=== PATIENT | male | born 1965 | race Hispanic/Latino ===

== ENCOUNTER 2018-05-25 14:20 | Emergency (ER) | payer MEDICAID, OTHER ==
[2018-05-25 14:49] VITALS: BP 116/74; PULSE 70; RESP 18; TEMP 98.6; O2SAT 96
--- NOTE | 2018-05-25 15:02 | C.PDOC ---
History Of Present Illness CONCERN FOR PERSIST L BUTTOCK ABSCESS X 2 WEEKS. PS HAS BEEN SELF SQUEEZING AREA , LAST TIME 4 DAYS AGO. STILL W PERSIST REDNESS AND SWELLING BUT MUCH IMPROVED OVERALL. NO DC, FEVER, HO PRIOR SIM LOCATION LESION EXAM NAD SKIN +RESOLVING ABSCESS L BUTTOCK W LOCAL ERYTHEMA, INDURATION. NO FOCAL FLUCTUANCE, DC. +SCAB REMAINDER NEG MDM CELLULITIS, RESIDUAL ABSCESS W NO PALP FOCAL FLUCTUANCE. ABX Time Seen by Provider: 05/25/18 14:43 History Per: Patient History/Exam Limitations: no limitations Onset/Duration Of Symptoms: Days Current Symptoms Are (Timing): Still Present Severity: Moderate Past Medical History Reviewed: Historical Data, Nursing Documentation, Vital Signs Vital Signs: Last Vital Signs Temp 98.6 F 05/25/18 14:48 Pulse 70 05/25/18 14:48 Resp 18 05/25/18 14:48 BP 116/74 05/25/18 14:48 Pulse Ox 96 05/25/18 15:02 - Medical History PMH: Anxiety Denies: Diabetes, Hepatitis, HIV, HTN, Seizures, Sexually Transmitted Disease Other Surgeries: Hx of surgeries Family History: States: No Known Family Hx - Social History Hx Tobacco Use: No Hx Alcohol Use: No Hx Substance Use: No - Immunization History Hx Tetanus Toxoid Vaccination: Yes Hx Influenza Vaccination: Yes Hx Pneumococcal Vaccination: Yes Review Of Systems Except As Marked, All Systems Reviewed And Found Negative. Constitutional: Negative for: Fever, Chills Skin: Positive for: Other (left buttock abscess) Physical Exam - Physical Exam Appears: No Acute Distress Skin: Normal Color, Warm, Dry, Other (+ resolving abscess to left buttock with local erythema, induration, no focal fluctuance, discharge, + scab) Head: Atraumatic, Normacephalic Eye(s): bilateral: Normal Inspection Respiratory: Other (NARD) Neurological/Psych: Oriented x3, Normal Speech ED Course And Treatment O2 Sat by Pulse Oximetry: 96 (RA) Pulse Ox Interpretation: Normal Medical Decision Making Medical Decision Making: CELLULITIS, RESIDUAL ABSCESS W NO PALP FOCAL FLUCTUANCE. ABX Disposition Counseled Patient/Family Regarding: Diagnosis, Need For Followup, Rx Given - Disposition Referrals: [facility] [Outside] [facility] [Outside] Disposition: HOME/ ROUTINE Disposition Time: 15:01 Condition: IMPROVED Additional Instructions: AVOID SQUEEZING AREA OR FURTHER MANIPULATION. COMPLETE ANTIBIOTICS PRESCRIBED. FOLLOW UP CLINIC. READ INSTRUCTIONS WITH DISCHARGE PAPERS. Prescriptions: Cephalexin [cephalexin] 500 mg PO BID #14 cap Sulfamethoxazole/Trimethoprim [Bactrim DS 800 mg-160 mg] 1 tab PO BID #14 tab Instructions: Cellulitis (Skin Infection), Adult (DC) Forms: [facility] (French) - Clinical Impression Clinical Impression: Cellulitis and abscess of buttock - Scribe Statement The provider has reviewed the documentation as recorded by the Javy Dove Provider Attestation: All medical record entries made by the Javy were at my direction and personally dictated by me. I have reviewed the chart and agree that the record accurately reflects my personal performance of the history, physical exam, medical decision making, and the department course for this patient. I have also personally directed, reviewed, and agree with the discharge instructions and disposition.
== END 2018-05-25 15:10 | disposition home or self-care (01) ==
LOC: C.ER 14:20
DX: L03.317 Cellulitis of buttock (principal); L02.31 Cutaneous abscess of buttock

== ENCOUNTER 2018-07-28 12:19 | Emergency (ER) | payer OTHER ==
[2018-07-28 12:42] VITALS: BMI 24.0
[2018-07-28 12:48] VITALS: BP 132/84; PULSE 77; RESP 18; TEMP 99.8; O2SAT 99
--- NOTE | 2018-07-28 13:27 | C.PDOC ---
History Of Present Illness 53 y/o male,w/PMhx of anxiety and drug abuse, presents to the ER complaining of right arm pain which has been present for the past 1 week. Patient states that he tripped and fell hurting his right arm 1 week ago. Denies LOC. Patient reports that the pain has not decreased since the fall. He describes the pain as dull and notes that the pain is located mainly in the right forearm and elbow. He notes that the pain is worse with movement with intermittent paresthesias to 4th and 5th digits, along with medial palm. He has not taken any medications for the pain. Denies having fevers, chills, dizziness, weakness, numbness, shoulder pain, CP, SOB, visual changes, and headache. Chief Complaint (Nursing): Upper Extremity Problem/Injury History Per: Patient History/Exam Limitations: no limitations Onset/Duration Of Symptoms: Days Current Symptoms Are (Timing): Still Present Severity: Moderate Past Medical History Reviewed: Historical Data, Nursing Documentation, Vital Signs Vital Signs: Last Vital Signs Temp 99.8 F H 07/28/18 12:39 Pulse 77 07/28/18 12:39 Resp 18 07/28/18 12:39 BP 132/84 07/28/18 12:39 Pulse Ox 99 07/28/18 12:39 - Medical History PMH: Anxiety, Pneumonia Denies: Diabetes, Hepatitis, HIV, HTN, Seizures, Sexually Transmitted Disease Other Surgeries: Hx of surgeries Family History: States: No Known Family Hx - Social History Hx Tobacco Use: No Hx Alcohol Use: Yes Hx Substance Use: Yes - Immunization History Hx Tetanus Toxoid Vaccination: No Hx Influenza Vaccination: No Hx Pneumococcal Vaccination: No Review Of Systems Except As Marked, All Systems Reviewed And Found Negative. Constitutional: Negative for: Fever, Chills Eyes: Negative for: Vision Change Cardiovascular: Negative for: Chest Pain Respiratory: Negative for: Shortness of Breath Musculoskeletal: Positive for: Arm Pain (right arm pain). Negative for: Shoulder Pain Neurological: Negative for: Weakness, Numbness, Headache Physical Exam - Physical Exam Appears: Well, Non-toxic, No Acute Distress Skin: Normal Color, Warm, Dry Head: Normacephalic, Abrasion (small to left jaw line, no tenderness or warmth) Eye(s): bilateral: Normal Inspection, PERRL, EOMI Ear(s): Bilateral: Normal Nose: Normal Oral Mucosa: Moist Neck: Normal, Normal ROM, No Decreased ROM, No Paracervical Tenderness, Supple Chest: Symmetrical Cardiovascular: Rhythm Regular Respiratory: Normal Breath Sounds Back: Normal Inspection, No CVA Tenderness, No Vertebral Tenderness, No Decreased ROM, No Muscle Spasm Extremity: No Normal ROM (decreased protonaton/supination of right arm secondary to pain), Tenderness (tenderness to right proximal forearm and elbow), Capillary Refill (<2s), No Deformity, No Swelling Extremity: Bilateral: Atraumatic, Normal Color And Temperature, Normal ROM Pulses: Left Radial: Normal, Right Radial: Normal Neurological/Psych: Oriented x3, Normal Speech, Normal Cognition, Normal Cranial Nerves, No Cerebellar Signs, Normal Motor, Normal Sensation Gait: Steady ED Course And Treatment O2 Sat by Pulse Oximetry: 99 (RA) Pulse Ox Interpretation: Normal Medical Decision Making Medical Decision Making: Plan: --Motrin PO --X-Ray-Right Elbow --X-Ray-Right Forearm Pt splinted in posterior elbow splint with sling awaiting XR results, pt reports decreased pain and paresthesias with medicine and elbow splint. Neurovascular exam unchanged after splint. Repeated temp, 98.5 oral. XR Elbow: Unremarkable XR Forearm: Unremarkable Plan of care discussed with patient, and strict instructions given regarding prescriptions, importance of follow up, and signs to return to Emergency Department, to include worsening pain, weakness, vision changes, or any other new/worsening symptoms. Patient verbalizes understanding of discussion. Patient A&Ox3, ambulating with steady gait, stable for discharge home. Impression: Right elbow pain, possible cubital tunnel Plan: * Naproxen * Ortho followup * Neuro followup if paresthesias persist * Followup with primary doctor/clinic within 2 days * Return to ER for new/worsening symptoms Disposition - Disposition Referrals: [facility] [Outside] Austin Guadarrama III, MD [Staff Provider] - Claribel Brock MD [Staff Provider] - Disposition: HOME/ ROUTINE Disposition Time: 15:00 Condition: IMPROVED Additional Instructions: Keep arm in splint until followup Ibuprofen/tylenol for pain Followup with orthopedic within 2 days Followup with primary/clinic within 2 days Return to ER for new/worsening symptoms Forms: General Discharge Instructions, [facility] (Malian) - Clinical Impression Clinical Impression: Elbow pain - PA / CHILD DEVELOPMENT INSTRUCTOR / Resident Statement MD/DO has reviewed & agrees with the documentation as recorded. - Scribe Statement The provider has reviewed the documentation as recorded by the Scribe Willard Dove Provider Attestation All medical record entries made by the Dellaibbalaji were at my direction and personally dictated by me. I have reviewed the chart and agree that the record accurately reflects my personal performance of the history, physical exam, medical decision making, and the department course for this patient. I have also personally directed, reviewed, and agree with the discharge instructions and disposition.
--- NOTE | 2018-07-28 15:24 | RAD ---
Date of service: 07/28/2018 PROCEDURE: Radiographs of the right elbow. HISTORY: trauma r/o fracture COMPARISON: No prior. FINDINGS: BONES: No acute fracture or destructive bony lesion identified. JOINTS: Normal. No osteoarthritis. SOFT TISSUES: Normal. JOINT EFFUSION: None. OTHER FINDINGS: None. IMPRESSION: Unremarkable radiographs of the right elbow.
--- NOTE | 2018-07-28 15:25 | RAD ---
PROCEDURE: Radiographs of the Right Forearm HISTORY: trauma r/o fracture COMPARISON: None available. TECHNIQUE: Frontal and lateral views obtained. FINDINGS: BONES: No fracture or destructive lesion. JOINT SPACES: Unremarkable. OTHER FINDINGS: None. IMPRESSION: Unremarkable radiographs of the right forearm.
== END 2018-07-28 15:32 | disposition home or self-care (01) ==
LOC: C.ER 12:19
DX: M25.521 Pain in right elbow (principal)